=== PATIENT | female | born 1985 | race Caucasian/White ===

== ENCOUNTER 2017-01-19 01:23 | Emergency (ER) | payer MEDICAID ==
[~2017-01-19] VITALS: Ht 162.6 cm; Wt 68.0 kg
[2017-01-19 01:51] VITALS: BP 122/80
== END 2017-01-19 04:16 | disposition home or self-care (01) ==
LOC: ED 01:23
DX: D25.9 Leiomyoma of uterus, unspecified (principal)
CPT/HCPCS: J1885

== ENCOUNTER 2018-08-20 14:23 | Emergency (ER) | payer MEDICAID ==
[2018-08-20 16:36] LABS: BASOPHIL % 0.3 % (0-2); PLATELET COUNT 317 x10^3mcL (130-400); RED CELL DISTRIBUTION WIDTH 13.8 % (11.5-14.5)
[2018-08-20 16:41] LABS: CALCIUM 8.9 mg/dL (8.5-10.1); CHLORIDE SERUM 103 mmol/L (98-107); CREATININE SERUM 0.6 mg/dL (0.6-1.0); GFR1 > 60 mL/min; GLUCOSE SERUM 91 mg/dL (74-106); POTASSIUM SERUM 3.8 mmol/L (3.5-5.1); SODIUM SERUM 139 mmol/L (136-145)
[2018-08-20 16:46] LABS: ALBUMIN 3.7 g/dL (3.4-5.0); ALKALINE PHOSPHATASE 73 U/L (46-116); ALT/SGPT 27 U/L (14-59); AST/SGOT 12 U/L (15-37); BILIRUBIN TOTAL 0.2 mg/dL (0.20-1.00); LIPASE 132 IU/L (73-393); TOTAL PROTEIN, SERUM 7.4 g/dL (6.4-8.2)
[2018-08-20 17:30] VITALS: BP 112/74
== END 2018-08-20 17:30 | disposition home or self-care (01) ==
LOC: ED 14:23
PROVIDERS: Emergency Medicine
DX: K29.70 Gastritis, unspecified, without bleeding (principal); N39.0 Urinary tract infection, site not specified; Z90.721 Acquired absence of ovaries, unilateral; Z98.890 Other specified postprocedural states
CPT/HCPCS: J2270; J2405; J7030; Q0092

== ENCOUNTER 2018-11-06 03:01 | Emergency (ER) | payer MEDICAID ==
[~2018-11-06] VITALS: Ht 162.6 cm; Wt 67.6 kg
[2018-11-06 03:08] VITALS: Ht 162.6 cm; Wt 67.6 kg
[2018-11-06 03:55] VITALS: BP 111/53
== END 2018-11-06 03:55 | disposition home or self-care (01) ==
LOC: ED 03:01
DX: M25.561 Pain in right knee (principal)